=== PATIENT | male | born 1960 | race Caucasian/White ===

== ENCOUNTER → 2016-09-29 | Outpatient (CLI) | payer BC | LOC: GMAJ 10:52 | PROVIDERS: ATTEND Family Medicine | DX: N40.2 Nodular prostate without lower urinary tract symptoms (principal) ==

== ENCOUNTER → 2017-01-25 | Outpatient (CLI) | payer BC | END | disposition home or self-care (01) | LOC: GMAL 10:34 | PROVIDERS: ATTEND Family Medicine | DX: Z00.00 Encounter for general adult medical examination without abnormal findings (principal) ==

== ENCOUNTER → 2018-01-30 | Outpatient (CLI) | payer BC | LOC: GMAL 10:56 | PROVIDERS: ATTEND Family Medicine | DX: Z00.01 Encounter for general adult medical examination with abnormal findings (principal) ==

== ENCOUNTER → 2018-05-08 | Outpatient (CLI) | payer BC ==
--- NOTE | 2018-05-08 17:55 | CT ---
EXAM DESCRIPTION: Abdomen/Pelvis w/wo Contrast CLINICAL HISTORY: 58 years Male ABD PN COMPARISON: None. TECHNIQUE: Contiguous axial images obtained through the abdomen and pelvis prior to and following IV contrast. Reformatted images obtained. This exam was performed according to our department optimization program which includes automated exposure control, adjustment of the mA and/or kv according to patient size and/or use of iterative reconstruction technique. FINDINGS: The liver appears unremarkable. The spleen and pancreas appear unremarkable. No adrenal masses. There are nonobstructing renal calculi bilaterally. No hydronephrosis or obstructive uropathy. The gallbladder is present. Small phrygian cap. No aneurysmal dilatation of the aorta. No bowel obstruction. The appendix is unremarkable. No free fluid. Diverticulosis without evidence of diverticulitis. IMPRESSION: Nonobstructing renal calculi No evidence of acute process Diverticulosis without diverticulitis Electronically signed by: Jeanine Khanna MD 05/08/2018 5:54 PM LITH[facility]
== END ==
LOC: CT 16:24
PROVIDERS: ATTEND Family Medicine
DX: R10.84 Generalized abdominal pain (principal); K57.90 Diverticulosis of intestine, part unspecified, without perforation or abscess without bleeding

== ENCOUNTER → 2018-08-15 | Outpatient (CLI) | payer BC | LOC: GMAL 10:53 | PROVIDERS: ATTEND Family Medicine | DX: Z00.01 Encounter for general adult medical examination with abnormal findings (principal) ==

== ENCOUNTER → 2019-01-31 | Outpatient (CLI) | payer BC | LOC: GMAL 11:01 | PROVIDERS: ATTEND Family Medicine | DX: E53.8 Deficiency of other specified B group vitamins (principal); E78.2 Mixed hyperlipidemia; R53.83 Other fatigue; E55.9 Vitamin D deficiency, unspecified; Z12.5 Encounter for screening for malignant neoplasm of prostate; Z79.899 Other long term (current) drug therapy ==

== ENCOUNTER → 2020-03-24 | Outpatient (CLI) | payer BC | LOC: GMAL 10:23 | PROVIDERS: ATTEND Family Medicine | DX: E53.8 Deficiency of other specified B group vitamins (principal); N40.1 Benign prostatic hyperplasia with lower urinary tract symptoms; R53.82 Chronic fatigue, unspecified; E55.9 Vitamin D deficiency, unspecified ==